=== PATIENT | female | born 1965 | race Caucasian/White ===

== ENCOUNTER 2020-08-29 13:19 | Emergency (ER) | payer OTHER | END 2020-08-29 13:40 | disposition home or self-care (01) | LOC: JVIRT 13:19 | DX: Z20.822 Contact with and (suspected) exposure to COVID-19 (principal) | CPT/HCPCS: C9803; G2251-GT; U0003 ==

== ENCOUNTER 2023-11-06 20:54 | Emergency (ER) | payer BC, OTHER ==
[2023-11-06 21:10] VITALS: BP 208/100; PULSE 90; RESP 18; TEMP 97.7; BMI 37.4
== END 2023-11-06 22:02 | disposition home or self-care (01) ==
LOC: FER 20:54
DX: S82.831A Other fracture of upper and lower end of right fibula, initial encounter for closed fracture (principal); M25.571 Pain in right ankle and joints of right foot; W18.42XA Slipping, tripping and stumbling without falling due to stepping into hole or opening, initial encounter; Y93.01 Activity, walking, marching and hiking
CPT/HCPCS: 73610-TC-RT-FY; 73630-TC-RT-FY; 99283-25